=== PATIENT | male | born 1970 | race Two or more races ===

== ENCOUNTER → 2021-07-10 | Outpatient (CLI) | payer OTHER ==
[~2021-07-10] MED LIST: IOHEXOL 300 MG/ML 100ML BOTTLE IJ ONE
[2021-07-10 09:49] LABS: BUN/Creatinine Ratio 14.6; Calcium 9.3 mg/dL (8.5-10.1); Potassium 3.9 mmol/L (3.5-5.1)
== END | disposition home or self-care (01) ==
LOC: CT 08:08
DX: M47.814 Spondylosis without myelopathy or radiculopathy, thoracic region (principal); R59.0 Localized enlarged lymph nodes
CPT/HCPCS: 36415; 71260; 80048; Q9967